=== PATIENT | male | born 2000 | race Caucasian/White ===

== ENCOUNTER 2022-07-26 22:00 | Emergency (ER) | payer MEDICAID, SELFPAY ==
[2022-07-26 22:10] VITALS: BP 144/82; PULSE 96; RESP 14; TEMP 36.7; O2SAT 97
--- NOTE | 2022-07-26 22:15 | ED_ITS ---
HPI - Dental/Oral General: Chief complaint: Dental/Oral Stated complaint: tooth pain Time Seen by Provider: 07/26/22 22:15 History of Present Illness: 21-year-old male patient comes in today for complaints of right second premolar pain and discomfort. Patient reports he was eating some Wolof fries and bit down on something hard that broke off the side of his tooth. This occurred yesterday and since then he has had increased swelling to the gingiva on the lateral aspect of the tooth that was injured yesterday. Patient appears nontoxic. Patient appears in moderate pain. Patient has fair to poor dentition due to caries. Associated symptoms: Denies fever(s) Review of Systems Const: Denies: fever(s) ENMT: Reports: dental pain Card: Denies: chest pain Resp: Denies: dyspnea GI: Denies: vomiting : Denies: difficulty urinating Musc: Denies: neck pain Skin/Breast: Denies: rash Physical Exam Const: COMMON NORMALS: alert HENMT: TEETH & GINGIVA IMAGES: 1. Broken tooth, lateral gingival redness and swelling Neck/C-Spine: COMMON NORMALS: full ROM Resp: COMMON NORMALS: normal respiratory effort Cardio: COMMON NORMALS: regular rate RATE: regular rate Extremity: COMMON NORMALS: normal to inspection Neuro: SENSORIUM/ORIENTATION: Yes alert Skin: COMMON NORMALS: turgor normal GENERAL SKIN EXAM: turgor normal Course Vital Signs: Vital signs: Vital Signs Temperature 98.0 F 07/26/22 22:10 Pulse Rate 96 07/26/22 22:10 Respiratory Rate 14 07/26/22 22:10 Blood Pressure 144/82 07/26/22 22:10 Pulse Oximetry 97 07/26/22 22:10 Oxygen Delivery Me thod Room Air 07/26/22 22:10 MDM - Dental/Oral Medical Decision Making 21-year-old male patient comes in today with complaints of right lower jaw pain. On exam patient has a broken off tooth to the second premolar on the right lower jaw. Patient has some gingival redness and swelling laterally to the tooth. Posterior pharynx is normal. Differential diagnosis includes but not limited to dental caries, odontalgia, dental abscess. Due to the redness and swelling of the gingiva I think patient probably has a dental abscess. We will start him on clindamycin 4 times a day for the next 7 days. Patient was given medications for his pain. Including viscous lidocaine and hydrocodone. Patient was recommended to follow-up with dentist for definitive care. Patient reported understanding agreed to plan. Discharge Plan Discharge Patient Disposition: Home Clinical Impression: Dental abscess Condition: Stable Prescriptions: New clindamycin HCl 300 mg capsule 300 mg PO QID 7 Days Qty: 28 0RF Lidocaine Viscous 2 % solution 5 ml mucous membrane Q4H PRN (Reason: pain) Qty: 100 0RF hydrocodone-acetaminophen 5-325 mg tablet 1 tab PO Q6H PRN (Reason: pain (scale score 7-10)) Qty: 7 0RF Discharge Orders: Discharge ED (Routine); Ordered 07/26/22 Ordered By: Perfecto Huerta Discharge Diet: Usual diet Discharge Activity: Increase activity as tolerated Patient Instructions: Toothache (ED), Opioid Safety, Pain Management Activity Restrictions/Additional Instructions: Home and rest. Take antibiotics as directed. Use acetaminophen to control pain. Use ice or heat for further pain relief. Use hydrocodone for severe pain. Use lidocaine jelly applied to of gauze or cotton ball and apply it to the open cavity to numb the nerve. Follow-up with dentist for definitive care. Return to ED for new concerns. Coding Level of Care Code ED Asphalt Distributor Operator for Radha Zhou
[2022-07-26] MEDS: clindamycin 150 mg Capsule 300 MG PO (22:26)
[2022-07-26] MEDS: HYDROcodone-acetaminophen 7.5-325 mg Tablet 1 TAB PO (22:26)
[2022-07-26] MEDS: lidocaine 2% viscous 15 mL UDC 5 ML MUCOUS MEM (22:26)
--- NOTE | 2022-07-30 13:33 | DCPLANNER ---
workshop manager called patient due to no primary care physician - no answer at this time
== END 2022-07-26 22:39 | disposition home or self-care (01) ==
PROVIDERS: Emergency Provider Nurse Practitioner Family
DX: K04.7 Periapical abscess without sinus (principal)
CPT/HCPCS: 99283

== ENCOUNTER 2022-08-08 08:49 | Emergency (ER) | payer MEDICAID, SELFPAY ==
[2022-08-08 09:05] VITALS: BP 153/91; PULSE 83; RESP 16; TEMP 36.8; O2SAT 97; BMI 26.4
--- NOTE | 2022-08-08 09:13 | W.ED.DENTAL ---
HPI - Dental/Oral General: Chief complaint: Dental/Oral Stated complaint: tooth nerve exposed Time Seen by Provider: 08/08/22 08:50 Source: patient Mode of arrival: ambulatory Limitations: no limitations History of Present Illness: Patient is a 21-year-old male who presents to ED today with a complaint of dental pain. Patient states he has an impacted cracked left lower third molar that is causing him quite a bit of discomfort. He states he is not able to sleep secondary to pain. He states he has contacted several dentists but states he is having trouble finding somebody that accepts adult Medicaid. He has been trying OTC therapies without much relief. Patient was seen here a few weeks ago and placed on antibiotics. He has not noticed any mouth, face, neck swelling. No fevers. MD Complaint: tooth pain Teeth map: 1. Onset (ago): day(s) Duration: constant Severity: severe Severity scale (1-10): 10 Relieving factors: nothing Exacerbating factors: chewing Context: history of dental caries and poor dental care Associated symptoms: Reports ear or mastoid pain; Denies fever(s) or odynophagia Treatment prior to arrival: topical analgesic and oral analgesic Review of Systems Const: Denies: fever(s), chills, body aches, fatigue or malaise ENMT: Reports: dental pain and ear or mastoid pain; Denies: throat pain, enlarged tonsils, odynophagia, swelling of lips/tongue, oral sores, bleeding gums, nasal discharge, nasal congestion or sinus pain Card: Denies: chest pain Resp: Denies: dyspnea GI: Denies: nausea or vomiting Musc: Denies: neck pain Skin/Breast: Denies: rash Neuro: Denies: headache(s) Physical Exam Const: COMMON NORMALS: no acute distress, average body habitus, patient oriented x3, no limitations, healthy appearing, alert and well nourished GENERAL APPEARANCE: cooperative ORIENTATION/CONSCIOUSNESS: Yes awake, Yes oriented to person, Yes oriented to place and Yes oriented to time HENMT: COMMON NORMALS: normocephalic, atraumatic, external ears normal, EAC's normal, TM's normal bilaterally, moist oral mucous membranes, oropharynx normal and gingiva normal HEAD & SCALP: normal to inspection, normocephalic and atraumatic FACE & SINUS: normal facial exam; no erythema, no edema and no fluctuance EXTERNAL EAR: Yes external ears normal EXTERNAL AUDITORY CANAL: EAC's normal TYMPANIC MEMBRANE: TM's normal bilaterally MOUTH: Normal oral and palatal mucosa present, lip normal and tongue normal TEETH & GINGIVA: Yes caries TEETH & GINGIVA IMAGES: 1. decayed, impacted, cracked 3rd molar; no evidence for abscess/infection THROAT: posterior oropharynx normal, tonsils normal and uvula midline Eye: GENERAL EYE: appearance normal, both eyes and all related structures Neck/C-Spine: COMMON NORMALS: full ROM, no lymphadenopathy and no meningeal signs GENERAL: Yes normal visual inspection, No anterior neck swelling and No submandibular swelling Neuro: COMMON NORMALS: patient oriented x3 SENSORIUM/ORIENTATION: Yes alert, Yes oriented to person, Yes oriented to place and Yes oriented to time MENINGEAL SIGNS: Yes no meningeal signs Course Vital Signs: Vital signs: Vital Signs Temperature 98.2 F 08/08/22 09:05 Pulse Rate 83 08/08/22 09:05 Respiratory Rate 16 08/08/22 09:05 Blood Pressure 153/91 08/08/22 09:05 Pulse Oximetry 97 08/08/22 09:05 Oxygen Delivery Me thod Room Air 08/08/22 09:05 MDM - Dental/Oral Medical Decision Making Patient will be provided dental resources and encouraged to continue trying to find a dentist for follow-up. I do not see any evidence for active infection at this time. He was placed on antibiotics/clindamycin on 07/26. He will be provided a small amount of pain medications that he can take sparingly for severe pain. Discharge Plan Discharge Patient Disposition: Home Clinical Impression: Toothache, Cracked tooth Condition: Stable Prescriptions: New tramadol 50 mg tablet 50 mg PO Q6H PRN (Reason: pain) Qty: 8 0RF Continued Lidocaine Viscous 2 % solution 5 ml mucous membrane Q4H PRN (Reason: pain) Qty: 100 0RF Discontinued hydrocodone-acetaminophen 5-325 mg tablet 1 tab PO Q6H PRN (Reason: pain (scale score 7-10)) Qty: 7 0RF Discharge Orders: Discharge ED (Routine); Ordered 08/08/22 Ordered By: Maria Guadalupe Silver Patient Instructions: Dental Caries (Cavities), Toothache (ED), Opioid Safety, Pain Management Activity Restrictions/Additional Instructions: Please follow up with a dentist as soon as possible. You have been provided dental resources. Coding Level of Care Code ED Tabulating Supervisor for Radha Zhou
[2022-08-08 09:32] VITALS: BP 153/91; PULSE 83; RESP 16; TEMP 36.8; O2SAT 97
--- NOTE | 2022-08-17 09:18 | DCPLANNER ---
TCM called patient due to no primary care physician - no answer at this time.
== END 2022-08-08 09:33 | disposition home or self-care (01) ==
PROVIDERS: Emergency Provider Physician Assistant
DX: K03.81 Cracked tooth (principal)
CPT/HCPCS: 99283

== ENCOUNTER 2022-08-21 01:59 | Inpatient (IN) | payer MEDICAID, SELFPAY ==
[2022-08-21] VITALS (7 sets, daily range): BP systolic 133–166; BP diastolic 80–95; PULSE 91–107; RESP 16–18; TEMP 36.7–37.1; O2SAT 94–97; BMI 26.4
--- NOTE | 2022-08-21 02:09 | W.ED.PSYCHS ---
HPI - Psych General: Chief Complaint: Psychiatric Symptoms Stated Complaint: depression, SI Time Seen by Provider: 08/21/22 02:00 Source: patient Mode of arrival: ambulatory Limitations: no limitations History of Present Illness: 21-year-old male states that he has been struggling with depression lately has been drinking more alcohol states he been drinking tonight and started to cut his forearm as a pain relief he states he is not severely depressed he denies homicidal or suicidal ideations he denies any worsening proving factors. Associated symptoms: Reports depression Review of Systems Const: Denies: fever(s), chills, body aches or change in appetite Card: Denies: chest pain Resp: Denies: dyspnea GI: Denies: abdominal pain, nausea, vomiting or diarrhea : Denies: dysuria Musc: Denies: neck pain or back pain Skin/Breast: Denies: rash Psych: Reports: depression [facility] ED PFSH: Social History (Updated 08/21/22 @ 02:10 by Radha Harmon MD) Alcohol intake: current Physical Exam Const: COMMON NORMALS: no acute distress, patient oriented x3 and healthy appearing HENMT: COMMON NORMALS: normocephalic and atraumatic HEAD & SCALP: normocephalic and atraumatic Eye: COMMON NORMALS: conjunctivae normal CONJUNCTIVA: Yes conjunctivae normal Neck/C-Spine: COMMON NORMALS: full ROM and supple Chest: COMMONS NORMALS: normal inspection of the chest and normal palpation of entire chest wall Resp: COMMON NORMALS: normal respiratory effort, No retractions, No use of accessory muscles and clear to auscultation bilaterally AUSCULTATION: clear to auscultation bilaterally Cardio: COMMON NORMALS: regular rate, regular rhythm and No murmurs present (Cardio) RATE: regular rate RHYTHM: regular rhythm GI: COMMON NORMALS: Normal to inspection, nondistended, normoactive bowel sounds present, Soft to palpation, non-tender and no masses PALPATION: Yes Soft to palpation Extremity: COMMON NORMALS: full ROM Neuro: COMMON NORMALS: patient oriented x3, moves all extremities and no focal motor deficits Psych: COMMON NORMALS: mental status grossly normal, Normal thought process present and cooperative THOUGHT PROCESS: Normal thought process present Skin: COMMON NORMALS: no rashes or lesions noted NARRATIVE SKIN EXAM: Multiple superficial lacerations to left forearm GENERAL SKIN EXAM: no rashes or lesions noted Course Vital Signs: Vital signs: Vital Signs Temperature 98.8 F 08/21/22 02:05 Pulse Rate 105 H 08/21/22 02:05 Respiratory Rate 16 08/21/22 03:49 Blood Pressure 166/95 08/21/22 02:05 Pulse Oximetry 97 08/21/22 02:05 Oxygen Delivery Me thod Room Air 08/21/22 02:05 MDM - Psych Medical Decision Making Patient presents here with depression along with self cutting with lacerations he is not suicidal homicidal he voluntarily wants to get help spoke to psychiatrist will admit him to the psych mac under voluntary admission. Medical Records I reviewed the patient's medical records. Lab Data I reviewed the patient's lab results. 08/21/22 02:18 08/21/22 02:18 Laboratory Results WBC 7.0 10^3/uL (4.0-10.0) 08/21/22 02:18 RBC 5.22 10^6/uL (4.1-5.3) 08/21/22 02:18 Hgb 15.5 g/dL (11.7-16.6) 08/21/22 02:18 Hct 47.0 % (42.0-52.0) 08/21/22 02:18 MCV 90.0 fl (80-94) 08/21/22 02:18 MCH 29.7 pg (28.0-34.0) 08/21/22 02:18 MCHC 33.0 g/dL (30.0-36.0) 08/21/22 02:18 RDW 12.5 % (12.1-15.1) 08/21/22 02:18 Plt Count 198 10^3/cmm (130-400) 08/21/22 02:18 MPV 10.5 fL (7.4-10.4) H 08/21/22 02:18 Neut % (Auto) 52.2 % 08/21/22 02:18 Lymph % (Auto) 39.4 % 08/21/22 02:18 [place] % (Auto) 6.0 % 08/21/22 02:18 Eos % (Auto) 1.1 % 08/21/22 02:18 Baso % (Auto) 0.9 % 08/21/22 02:18 Neut # (Auto) 3.64 10^3/uL (1.8-7.7) 08/21/22 02:18 Lymph # (Auto) 2.8 10^3/uL (0.8-4.8) 08/21/22 02:18 [place] # (Auto) 0.4 10^3/uL (0.2-0.9) 08/21/22 02:18 Eos # (Auto) 0.1 10^3/uL (0.0-0.8) 08/21/22 02:18 Baso # (Auto) 0.1 10^3/uL (0.0-0.1) 08/21/22 02:18 Nucleated RBC % (auto) 0 % 08/21/22 02:18 Nucleated RBCs # 0.0 /100WBC 08/21/22 02:18 Sodium 139 mmol/L (136-145) 08/21/22 02:18 Potassium 4.5 mmol/L (3.5-5.1) 08/21/22 02:18 Chloride 105 mmol/L (98-107) 08/21/22 02:18 Carbon Dioxide 23 mmol/L (22-29) 08/21/22 02:18 Anion Gap 15.5 (5-19) 08/21/22 02:18 BUN 8 mg/dL (6-20) 08/21/22 02:18 Creatinine 0.6 mg/dL (0.7-1.2) L 08/21/22 02:18 GFR Calculation 168.5 mL/min (90-130) H 08/21/22 02:18 Glucose 109 mg/dL (65-115) 08/21/22 02:18 Calculated Osmolality 287 mOsm/kg (285-295) 08/21/22 02:18 Calcium 8.7 mg/dL (8.5-10.5) 08/21/22 02:18 Total Bilirubin 0.2 mg/dL (0.15-1.2) 08/21/22 02:18 AST 18 U/L (0-40) 08/21/22 02:18 ALT 11 U/L (0-41) 08/21/22 02:18 Alkaline Phosphatase 85 U/L (40-130) 08/21/22 02:18 Total Protein 7.2 g/dL (6.6-8.7) 08/21/22 02:18 Albumin 4.5 g/dL (3.5-5.2) 08/21/22 02:18 Globulin 2.7 g/dL (1.3-4.6) 08/21/22 02:18 Salicylates < 0.3 mg/dL (3-10) L 08/21/22 02:18 Urine Opiates Screen Negative ng/mL (Negative) 08/21/22 02:15 Acetaminophen < 5.0 ug/mL (10-30) L 08/21/22 02:18 Ur Barbiturates Screen Negative ng/mL (Negative) 08/21/22 02:15 Ur Phencyclidine Scrn Negative ng/mL (Negative) 08/21/22 02:15 Ur Amphetamines Screen Negative ng/mL (Negative) 08/21/22 02:15 U Benzodiazepines Scrn Negative ng/mL (Negative) 08/21/22 02:15 Urine Cocaine Screen Negative ng/mL (Negative) 08/21/22 02:15 U Marijuana (THC) Screen Positive ng/mL (Negative) H 08/21/22 02:15 Ethyl Alcohol 157 mg/dL (0-10) H 08/21/22 02:18 Discharge Plan Discharge Patient Disposition: Admitted As Inpatient Admit Provider: Andre Juárez Clinical Impression: Suicidal ideation, Arm laceration Condition: Stable Coding Level of Care Code ED Field Talent Qualification Specialist for Radha Zhou
[2022-08-21 02:24] LABS: Basophils # 0.1 10^3/uL (0.0-0.1); Basophils % 0.9 %; Eosinophils # 0.1 10^3/uL (0.0-0.8); Eosinophils % 1.1 %; Hemoglobin 15.5 g/dL (11.7-16.6); Lymphocytes # 2.8 10^3/uL (0.8-4.8); Lymphocytes % 39.4 %; Mean Corpuscular Hemoglobin 29.7 pg (28.0-34.0); Mean Platelet Volume 10.5 fL (7.4-10.4); Monocytes # 0.4 10^3/uL (0.2-0.9); Neutrophils # 3.64 10^3/uL (1.8-7.7); Neutrophils % 52.2 %; Nucleated Red Blood Cells % 0 %; Platelet Count 198 10^3/cmm (130-400); Red Blood Count 5.22 10^6/uL (4.1-5.3); Red Cell Distribution Width 12.5 % (12.1-15.1)
[2022-08-21] MEDS: nicotine 21 mg Patch 1 PATCH TRANSDERMA (02:30)
[2022-08-21 02:34] LABS: Amphetamines Screen Urine Negative (Negative); Barbiturates Screen Urine Negative (Negative); Benzodiazepines Screen Urine Negative (Negative); Cocaine Screen Urine Negative (Negative); Opiate Screen Urine Negative (Negative); PCP Screen Urine Negative (Negative); THC Screen Urine Positive (Negative)
[2022-08-21 02:41] LABS: Alanine Aminotransferase 11 U/L (0-41); Albumin Level 4.5 g/dL (3.5-5.2); Alcohol Level 157 mg/dL (0-10); Alkaline Phosphatase 85 U/L (40-130); Anion Gap 15.5 (5-19); Aspartate Amino Transferase 18 U/L (0-40); Blood Urea Nitrogen 8 mg/dL (6-20); Calcium 8.7 mg/dL (8.5-10.5); Carbon Dioxide 23 mmol/L (22-29); Chloride 105 mmol/L (98-107); Globulin 2.7 g/dL (1.3-4.6); Glomerular Filtration Rate 168.5 mL/min (90-130); Glucose 109 mg/dL (65-115); Osmolality Calculated 287 mOsm/kg (285-295); Potassium 4.5 mmol/L (3.5-5.1); Sodium 139 mmol/L (136-145); Total Bilirubin 0.2 mg/dL (0.15-1.2); Total Protein 7.2 g/dL (6.6-8.7)
[2022-08-21 02:44] LABS: Acetaminophen < 5.0 ug/mL (10-30); Salicylate < 0.3 mg/dL (3-10)
--- NOTE | 2022-08-21 06:55 | P.NPUHP_ITS ---
Providers/Chief Complaint Admitting Physician: Andre Juárez MD Primary Care Provider: Kassy Riojas Chief Complaint: depression, SI HPI NPU History of Present Illness Rickey Solano is a 21 year old male Chief Complaint: Psychiatric Symptoms Stated Complaint: depression, SI Time Seen by Provider: 08/21/22 02:00 Source: patient Mode of arrival: ambulatory Limitations: no limitations History of Present Illness: 21-year-old male states that he has been struggling with depression lately has been drinking more alcohol states he been drinking tonight and started to cut his forearm as a pain relief he states he is not severely depressed he denies homicidal or suicidal ideations he denies any worsening proving factors. Associated symptoms: Reports depression He was admitted to the neuropsychiatric unit for definitive treatment of those issues. He presents today reporting that he was hospitalized before in his life in [place] when he was a kid. This was shortly after the of his father. He reports that that really created challenges for him and he went on a period of time with significant difficulties. This included tobacco, alcohol and marijuana use and even involved other drugs like methamphetamines. He reports that this all culminated with him going [facility] he was about 17 years old and he spent 14 months consecutively at that time. He reports that after that he really started getting himself together. That he in general has avoided major issues with addiction. He reports has been 6 months since he has had significant use but that he does have depression and anxiety from time to time. He reports that he had been doing okay recently but got intoxicated and was having some conflicts and that is when he put the longitudinal very superficial cuts on his left inner forearm. He denies having any suicidality and reports that he would have never done that if he was not intoxicated. He reports understanding that that something he needs to avoid. Additionally he reports that he has some misdemeanor charges he has to face and he was planning on turning himself in at the beginning of the week. He endorses having a history of self injures behavior but that he has not been doing that for years and that his current behavior again was under the influence. He understands that his presentation raise concerns and that although he is not on a 96-hour hold he was agreeable to the idea calling us to monitor him for another day to make sure that we are not comfortable with his safety. He endorsed that he did take medications when he was younger but he does not remember the names. He denies feeling there was a need for medication currently and said he would except referrals from the treatment team. We discussed a plan for discharge in the morning if there were no additional concerns raised. Psychiatric history: As above. Substance abuse history: As above. Family history: He endorsed some mental health and addiction issues in his family but did not elaborate. Developmental history: He denied any significant issues with his or delivery, learned to walk and talk and met his developmental milestones on time. He reports he did have some challenges in school. 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 Legal history: As above. He does not endorse having to present himself to manage some misdemeanor charges next week. Medical history: He denied any significant medical issues outside of the self-inflicted superficial lacerations/scratches on his left inner forearm. Meds NPU Allergies Allergy/AdvReac Type Severity Reaction Status Date / Time amoxicillin Allergy ALGY-Swell Verified 08/21/22 02:11 Lip/Tongue/Throat NSAIDS (Non-Steroidal Allergy ALGY-Swell Verified 08/21/22 02:11 Anti-Inflamma Lip/Tongue/Throat Penicillins Allergy ALGY-Swell Verified 08/21/22 02:11 Lip/Tongue/Throat PFSH NPU PFSH: Social History (Updated 08/21/22 @ 02:10 by Radha Harmon MD) Alcohol intake: current Mental Status Exam 2 MSE Comments: This is a well-nourished well-developed white male with adequate grooming and eye contact. With red hair and significant tattooing on his exposed skin and tens of superficial lacerations/scratches on his left inner forearm. No abnormal movements except for mild psychomotor retardation.? Cooperative with exam in mild distress.? Speech was decreased rate and volume.? Mood described as okay, affect subdued.? Thought process organized.? Thought content: Patient denied suicidal or homicidal ideation, there were no delusions reported or noted , he denied auditory or visual hallucinations. Attention and concentration are intact and memory appeared mostly reliable but none were formally tested.? He is alert and oriented x 3.? Insight appears fair, judgment limited and impulse control is impaired. Vitals/I&O/Wt Last Vital Signs Temp 98.0 F 08/21/22 02:49 Pulse 107 H 08/21/22 02:49 Resp 18 08/21/22 06:00 BP 133/80 08/21/22 02:49 Pulse Ox 94 08/21/22 02:49 O2 Del Method Room Air 08/21/22 04:13 Weight last 48 hrs Weight 86.183 kg Data NPU 08/21/22 02:18 08/21/22 02:18 A&P Assessment and plan (1) Suicidal ideation: (2) Arm laceration: (3) Partner relational problem: (4) Legal problem: (5) Adjustment disorder with mixed disturbance of emotions and conduct: (6) Alcohol use disorder: (7) Depression with anxiety: Plan This is a 21 year old white male who presents in on a voluntary commitment secondary to getting intoxicated and making multiple superficial scratches/lacerations on his arm with reports of depression and concerns for lethality with no mental health services since his teenage years when he was admitted to [facility], [place], operated by [facility] after the of his father. 1. Continue off of medication. 2. Encourage individual, group and milieu therapy 3. Continue q-15 minute check for safety 4. Encourage sober living treatment after discharge at the [facility] level of care to which she is willing to commit. Involuntary Hold Information 96 Hour Hold: 96 Hour Involuntary Admission: No Attestations NPU Medical Necessity Statement*: Inpatient hospitalization is medically necessary and the clinically appropriate intervention at this time. We will monitor medications and make changes as indicated. She will be in the hospital for over 2 midnights. Likely length of stay is 1-3 days. We will consider discharge tomorrow if no new issues arise. Coding Level of Care Code Acute Code for Chg Fwd Diagnoses Suicidal ideation R45.851 Arm laceration S41.119A Partner relational problem Z63.0 Legal problem Z65.3 Adjustment disorder with mixed disturbance of emotions and conduct F43.25 Alcohol use disorder F10.90 Depression with anxiety F41.8
[2022-08-21] MEDS: ondansetron 4 MG Tablet PO (08:15)
[2022-08-21] MEDS: neomycin-poly-bacitracin oint 28 gm 1 APPLIC TOPICAL (08:16)
[2022-08-21] MEDS: nicotine 2 mg Gum BUCCAL (13:51)
[2022-08-21] MEDS: nicotine 4 mg lozenge MUCOUS MEM ×2 (14:44→17:52)
--- NOTE | 2022-08-21 14:45 | PC.NURSE ---
Patient dropped nicotine gum on the floor. Requested lozenge instead and was administered at 1444.
[2022-08-22 06:00] VITALS: RESP 15
--- NOTE | 2022-08-22 08:02 | P.NPUDS_ITS ---
Diagnoses at Discharge Discharge Diagnosis (1) Suicidal ideation: Status: Resolved (2) Arm laceration: Status: Acute (3) Partner relational problem: Status: Acute (4) Legal problem: Status: Acute (5) Adjustment disorder with mixed disturbance of emotions and conduct: Status: Acute (6) Alcohol use disorder: Status: Acute (7) Depression with anxiety: Status: Acute Reason for Visit Reason for Visit: depression, SI Brief History: History of Present Illness Rickey Solano is a 21 year old male Chief Complaint: Psychiatric Symptoms Stated Complaint: depression, SI Time Seen by Provider: 08/21/22 02:00 Source: patient Mode of arrival: ambulatory Limitations: no limitations History of Present Illness:?? 21-year-old male states that he has been struggling with depression lately has been drinking more alcohol states he been drinking tonight and started to cut his forearm as a pain relief he states he is not severely depressed he denies homicidal or suicidal ideations he denies any worsening proving factors. ? Associated symptoms: Reports depression He was admitted to the neuropsychiatric unit for definitive treatment of those issues.? He presents today reporting that he was hospitalized before in his life in [place] when he was a kid.? This was shortly after the of his father.? He reports that that really created challenges for him and he went on a period of time with significant difficulties.? This included tobacco, alcohol and marijuana use and even involved other drugs like methamphetamines.? He reports that this all culminated with him going to long-term when he was about 17 years old and he spent 14 months consecutively at that time.? He reports that after that he really started getting himself together.? That he in general has avoided major issues with addiction.? He reports has been 6 months since he has had significant use but that he does have depression and anxiety from time to time.? He reports that he had been doing okay recently but got intoxicated and was having some conflicts and that is when he put the longitudinal very superficial cuts on his left inner forearm.? He denies having any suicidality and reports that he would have never done that if he was not intoxicated.? He reports understanding that that something he needs to avoid.? Additionally he reports that he has some misdemeanor charges he has to face and he was planning on turning himself in at the beginning of the week.? He endorses having a history of self injures behavior but that he has not been doing that for years and that his current behavior again was under the influence.? He understands that his presentation raise concerns and that although he is not on a 96-hour hold he was agreeable to the idea calling us to monitor him for another day to make sure that we are not comfortable with his safety.? He endorsed that he did take medications when he was younger but he does not remember the names.? He denies feeling there was a need for medication currently and said he would except referrals from the treatment team.? We discussed a plan for discharge in the morning if there were no additional concerns raised. Psychiatric history: As above. Substance abuse history: As above. Family history: He endorsed some mental health and addiction issues in his family but did not elaborate. Developmental history: He denied any significant issues with his or delivery, learned to walk and talk and met his developmental milestones on time.? He reports he did have some challenges in school. 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 Legal history: As above.? He does not endorse having to present himself to manage some misdemeanor charges next week. Medical history: He denied any significant medical issues outside of the self-inflicted superficial lacerations/scratches on his left inner forearm. Hospital Course Hospital Course Patient quickly acclimated to the individual, group and milieu therapies provided.? He was clear from the beginning that he had gotten intoxicated, was having interpersonal stressors as well as legal problems, but had no actually suicidal thinking once he was sober. He had no interest in starting medication, but was open to working with the social work team to get outpatient services. He was wanting to face his legal problems at the beginning of the week. He had significant improvement and was able to contract for safety outside of the hospital prior to discharge. during the hospitalization, he had routine laboratory studies which were within normal limits except for a few outliers.? Additionally he had general medical evaluation which was also within normal limits and revealed no new acute processes. Discharge Summary At the time of discharge, he denied any lethality and was absent? psychosis.? Mood and anxiety were well managed and she endorsed a plan to avoid all drugs of abuse, and follow-up with the recommended post hospital services.? He was evaluated and deemed to be absent credible lethality and had received the maximum benefit from an inpatient hospitalization, so was discharged Involuntary Hold Information 96 Hour Hold: 96 Hour Involuntary Admission: No Mental Status Exam MSE Comments: This is a well-nourished well-developed white male with adequate grooming and eye contact. With red hair and significant tattooing on his exposed skin and tens of superficial lacerations/scratches on his left inner forearm. No abnormal movements except for mild psychomotor retardation.? Cooperative with exam in mild distress.? Speech was decreased rate and volume.? Mood described as okay, affect subdued.? Thought process organized.? Thought content: Patient denied suicidal or homicidal ideation, there were no delusions reported or noted, he denied auditory or visual hallucinations. Attention and concentration are intact and memory appeared mostly reliable but none were formally tested.? He is alert and oriented x 3.? Insight appears fair, judgment limited and impulse control is impaired. Discharge Data Studies Completed and Pending: Laboratory Results WBC 7.0 10^3/uL (4.0- 10.0) 08/21/22 02:18 RBC 5.22 10^6/uL (4.1 -5.3) 08/21/22 02:18 Hgb 15.5 g/dL (11.7-1 6.6) 08/21/22 02:18 Hct 47.0 % (42.0-52.0 ) 08/21/22 02:18 MCV 90.0 fl (80-94) 08/21/22 02:18 MCH 29.7 pg (28.0-34. 0) 08/21/22 02:18 MCHC 33.0 g/dL (30.0-3 6.0) 08/21/22 02:18 RDW 12.5 % (12.1-15.1 ) 08/21/22 02:18 Plt Count 198 10^3/cmm (130 -400) 08/21/22 02:18 MPV 10.5 fL (7.4-10.4 ) H 08/21/22 02:18 Neut % (Auto) 52.2 % 08/21/22 02:18 Lymph % (Auto) 39.4 % 08/21/22 02:18 Gibson % (Auto) 6.0 % 08/21/22 02:18 Eos % (Auto) 1.1 % 08/21/22 02:18 Baso % (Auto) 0.9 % 08/21/22 02:18 Neut # (Auto) 3.64 10^3/uL (1.8 -7.7) 08/21/22 02:18 Lymph # (Auto) 2.8 10^3/uL (0.8- 4.8) 08/21/22 02:18 Gibson # (Auto) 0.4 10^3/uL (0.2- 0.9) 08/21/22 02:18 Eos # (Auto) 0.1 10^3/uL (0.0- 0.8) 08/21/22 02:18 Baso # (Auto) 0.1 10^3/uL (0.0- 0.1) 08/21/22 02:18 Nucleated RBC % (a uto) 0 % 08/21/22 02:18 Nucleated RBCs # 0.0 /100WBC 08/21/22 02:18 Sodium 139 mmol/L (136-1 45) 08/21/22 02:18 Potassium 4.5 mmol/L (3.5-5 .1) 08/21/22 02:18 Chloride 105 mmol/L (98-10 7) 08/21/22 02:18 Carbon Dioxide 23 mmol/L (22-29) 08/21/22 02:18 Anion Gap 15.5 (5-19) 08/21/22 02:18 BUN 8 mg/dL (6-20) 08/21/22 02:18 Creatinine 0.6 mg/dL (0.7-1. 2) L 08/21/22 02:18 GFR Calculation 168.5 mL/min (90- 130) H 08/21/22 02:18 Glucose 109 mg/dL (65-115 ) 08/21/22 02:18 Calculated Osmolal ity 287 mOsm/kg (285- 295) 08/21/22 02:18 Calcium 8.7 mg/dL (8.5-10 .5) 08/21/22 02:18 Total Bilirubin 0.2 mg/dL (0.15-1 .2) 08/21/22 02:18 AST 18 U/L (0-40) 08/21/22 02:18 ALT 11 U/L (0-41) 08/21/22 02:18 Alkaline Phosphata se 85 U/L (40-130) 08/21/22 02:18 Total Protein 7.2 g/dL (6.6-8.7 ) 08/21/22 02:18 Albumin 4.5 g/dL (3.5-5.2 ) 08/21/22 02:18 Globulin 2.7 g/dL (1.3-4.6 ) 08/21/22 02:18 Salicylates < 0.3 mg/dL (3-10 ) L 08/21/22 02:18 Urine Opiates Scre en Negative ng/mL (N egative) 08/21/22 02:15 Acetaminophen < 5.0 ug/mL (10-3 0) L 08/21/22 02:18 Ur Barbiturates Sc reen Negative ng/mL (N egative) 08/21/22 02:15 Ur Phencyclidine S crn Negative ng/mL (N egative) 08/21/22 02:15 Ur Amphetamines Sc reen Negative ng/mL (N egative) 08/21/22 02:15 U Benzodiazepines Scrn Negative ng/mL (N egative) 08/21/22 02:15 Urine Cocaine Scre en Negative ng/mL (N egative) 08/21/22 02:15 U Marijuana (THC) Screen Positive ng/mL (N egative) H 08/21/22 02:15 Ethyl Alcohol 157 mg/dL (0-10) H 08/21/22 02:18 Vitals: Last Vital Signs Temp 98.3 F 08/21/22 14:00 Pulse 91 08/21/22 14:00 Resp 15 08/22/22 06:00 BP 148/88 08/21/22 14:00 Pulse Ox 97 08/21/22 14:00 O2 Del Method Room Air 08/21/22 04:13 Discharge Plan Discharge Patient Disposition: Home Condition: Stable Discharge Orders: Discharge Order (Routine); Ordered 08/22/22 Ordered By: Andre Juárez Referrals: [facility] [Outside] - 08/29/22 10:30 am (Initial appointment shceduled for 08/29/22 @ 1030 am.) Ksasy Riojas [Primary Care Provider] - Discharge Diet: Regular Discharge Activity: Resume usual activity Patient Instructions: Alcohol Abuse, Suicide Prevention (DC), Opioid Safety Discharge Attestations NPU Time Spent in Discharge Care*: less than 30 min Specific Discharge Activities: Specific discharge activities: educating patient, discussing with registered nurse hh case manager/social workers/dc planners, documenting/other paperwork and evaluating patient/reviewing data Coding Level of Care Code Acute Chg FW DC note Diagnoses Suicidal ideation R45.851 Arm laceration S41.119A Partner relational problem Z63.0 Legal problem Z65.3 Adjustment disorder with mixed disturbance of emotions and conduct F43.25 Alcohol use disorder F10.90 Depression with anxiety F41.8
[2022-08-22] MEDS: nicotine 2 mg Gum BUCCAL (08:08)
[2022-08-22 08:11] VITALS: RESP 15
[2022-08-22 08:13] VITALS: BP 148/88; PULSE 91; RESP 15; TEMP 36.8; O2SAT 97
== END 2022-08-22 09:00 | disposition home or self-care (01) | DRG 880 ==
LOC: ER 02:04 → NP 03:38
PROVIDERS: Admitting Provider Psychiatry & Neurology Psychiatry; Emergency Provider Emergency Medicine; PCP Internal Medicine; Visit Provider Psychiatry & Neurology Psychiatry
DX: F41.8 Other specified anxiety disorders (principal); R45.851 Suicidal ideations; F10.10 Alcohol abuse, uncomplicated; F43.25 Adjustment disorder with mixed disturbance of emotions and conduct; Z65.3 Problems related to other legal circumstances; Z63.0 Problems in relationship with spouse or partner; Z91.52 Personal history of nonsuicidal self-harm; S51.812A Laceration without foreign body of left forearm, initial encounter; X78.8XXA Intentional self-harm by other sharp object, initial encounter; Y92.9 Unspecified place or not applicable
CPT/HCPCS: 80053; 80306; 80307; 85025; 97165; 99238; 99285; Q0162